=== PATIENT | male | born 1960 | race Hispanic/Latino ===

== ENCOUNTER 2017-03-16 10:01 | Day surgery (SDC) | payer OTHER ==
[2017-03-16 10:41] VITALS: RESP 18
[2017-03-16 10:43] VITALS: BMI 33.7
[2017-03-16] MEDS ORDERED: Midazolam 2 MG/2 ML VIAL ONE (11:26)
[2017-03-16] MEDS ORDERED: methylPREDNISolone Depo 80 mg/ml Inj ONE (11:26)
[2017-03-16] MEDS ORDERED: Iohexol 300 10 ML ONE (11:26)
[2017-03-16] MEDS ORDERED: MethylPREDNISolone Depo 40 mg/ml Inj ONE (11:26)
[2017-03-16] MEDS ORDERED: Bupivacaine HCl 0.5% PF (10 ml) Inj ONE (11:26)
[2017-03-16] MEDS ORDERED: Lidocaine 1% Inj (20ml) ONE (11:27)
[2017-03-16] MEDS ORDERED: Lactated Ringer's 1,000 ML IV ONE (11:29)
[2017-03-16] MEDS ORDERED: Lactated Ringer's 1,000 ML IV SCH (11:56)
[2017-03-16] MEDS ORDERED: HYDROmorphone 0.5 mg/0.5 ml ISec IVP PRN (11:56)
[2017-03-16 12:41] VITALS: BP 130/84; PULSE 78; TEMP 97.6; O2SAT 98
--- NOTE | 2017-03-16 17:22 | RAD ---
PROCEDURE: Less than 1 hr fluoroscopic time utilized during performance of the procedure. HISTORY: PAIN MANAGEMENT COMPARISON: None TECHNIQUE: Standard protocol for this study/examination. FINDINGS: Submitted images from the current procedure: 2.0. IMPRESSION: Total fluoroscopic time (continuous mode) utilized during the procedure: 34.0 seconds.
--- NOTE | 2017-03-16 23:53 | OP ---
PROCEDURE DATE: 03/16/2017 PREOPERATIVE DIAGNOSES: Left shoulder and left knee osteoarthritis. POSTOPERATIVE DIAGNOSES: Left shoulder and left knee osteoarthritis. PROCEDURE: Intra-articular steroid injection into the left shoulder and also genicular nerve block to the left knee x3. ANESTHESIOLOGISTS: Dr. Roberson and Dr. Loyd. SURGEON: Dr. Wright. TYPE OF ANESTHESIA: Monitored anesthesia care. COMPLICATIONS: None. SPECIMEN: None. DESCRIPTION OF PROCEDURE: After re-discussion of the procedure with the patient including its risks, benefits, alternatives, outcome data, possibility of no effects, increased pain, the patient consented to the procedure. The patient denies any recent infection, bleeding tendencies or being on anticoagulants. The decision was then made to proceed to the OR. The patient was placed on a fluoroscopy table in a supine position with 2 pillows underneath his left knee. The left shoulder and left knee was then prepped and draped in a usual sterile fashion and sterile technique was adhered to during the entire procedure. The left shoulder injection was first performed. Under anterior-posterior view, the left shoulder joint was visualized. The skin, approximately 5 mm below the left acromion was then infiltrated with 1% lidocaine using 25-gauge needled. Subsequently, a 25-gauge 3.5 inch spinal needle was then inserted perpendicularly to the skin until the needle was placed into the left shoulder joint. This was confirmed by injecting approximately 1 mL of Isovue contrast. At this point, approximately 4 mL of 0.5% Marcaine and Depo Medrol mixture was injected. The needled was then removed. Then the left knee injection was performed. The genicular nerves are located at the lateral and medial epicondyle of the femur and also the medial epicondyle of the tibia. The skin overlying the three of the targeted areas was then infiltrated with 1% lidocaine using 25-gauge needle. Subsequently, a 25-gauge 3.5 inch spinal needle was then inserted perpendicularly into the skin until tip of needle made point contact with all three targeted areas. Under lateral fluoroscopy view, the needle was advanced to the midpoint of the bone shaft. After appropriate placement of all three needles, approximately 4 mL of 0.5% Marcaine and Depo Medrol mixture was injected into each needle. At the end of the case, the patient's knee and shoulder was clean and dry, and bandages were applied. The patient was then transferred to recovery area in good condition without any signs of ELECTRICAL ENGINEERING MANAGER toxicity or any neurological deficit. He will have a followup in our office in approximately 2 to 4 weeks. En-Amrik Wright MD
== END 2017-03-16 13:00 | disposition home or self-care (01) ==
LOC: H.OPSURG 10:01
PROVIDERS: ATTEND Anesthesiology
DX: M17.12 Unilateral primary osteoarthritis, left knee (principal); J44.9 Chronic obstructive pulmonary disease, unspecified; I10 Essential (primary) hypertension; M19.012 Primary osteoarthritis, left shoulder
CPT/HCPCS: 20610; J1030; J1040; J2250; J3010; J7120; Q9967

== ENCOUNTER 2017-06-01 11:49 | Day surgery (SDC) | payer OTHER ==
[2017-06-01 12:30] VITALS: RESP 18
[2017-06-01] MEDS ORDERED: MethylPREDNISolone Depo 40 mg/ml Inj ONE (14:16)
[2017-06-01] MEDS ORDERED: Iohexol 300 10 ML ONE (14:17)
[2017-06-01] MEDS ORDERED: Bupivacaine HCl 0.25% PF (10 ml) Inj ONE (14:17)
[2017-06-01] MEDS ORDERED: Lidocaine 1% Inj (20ml) ONE (14:17)
[2017-06-01] MEDS ORDERED: methylPREDNISolone Depo 80 mg/ml Inj ONE (14:22)
[2017-06-01] MEDS ORDERED: Lactated Ringer's 1,000 ML IV ONE (14:23)
[2017-06-01 15:27] VITALS: BP 134/83; PULSE 72; TEMP 98.2
[2017-06-01 15:28] VITALS: O2SAT 98
--- NOTE | 2017-06-01 18:02 | OP ---
PROCEDURE DATE: 06/01/2017 PREOPERATIVE DIAGNOSIS: Lumbar radiculopathy. POSTOPERATIVE DIAGNOSIS: Lumbar radiculopathy. PROCEDURE: Bilateral L4-L5 and L5-S1 transforaminal epidural steroid injection. ANESTHESIA ADMINISTERED BY: Dr. Wyatt. SURGEON: Richard Wright MD TYPE OF ANESTHESIA: Monitored anesthesia care. COMPLICATIONS: None. SPECIMEN: None. DESCRIPTION OF PROCEDURE: After we had discussion of the procedure with the patient including its risks, benefits, alternatives, outcome data, possibility of no effect or increased pain, the patient consented to the procedure. He denies any recent infections, bleeding tendencies, or being on anticoagulants, and decision was then made to proceed to the OR. The patient was placed on a fluoroscopy table in a prone position with 2 pillows underneath his abdomen. The back was prepped and draped in the usual sterile fashion and sterile technique was adhered to during the entire procedure. The L4 and L5 vertebral levels were first identified in the anterior and posterior view. Angulation towards the right at approximately 25 degrees was used to maximize the visualization of the right L4 and L5 pedicles. The skin overlying the 6 o'clock position of both pedicles was then infiltrated with 1% lidocaine using a 25-gauge needle. Subsequently, a 22-gauge 5-inch spinal needle was incrementally advanced under fluoroscopic guidance until tip of the needle lay within the intravertebral foramen. After a satisfactory positioning of both needles, approximately 0.5 mL of Isovue contrast was injected showing appropriate epidural and nerve root spread without any signs of CSF or intravenous involvement. At this point, approximately 3 mL of 0.25% Marcaine and Depo-Medrol mixture was injected. The needle was then removed and the same exact procedure was performed on the contralateral left side using the same medications and techniques. At the end of the case, the patient's back was clean and dry and bandages were applied. The patient was then transferred to the recovery area in good conditions without any signs of INFRASTRUCTURE ANALYST toxicity or any neurological deficits. He will have a followup in our office in approximately 2 to 4 weeks. Richard Wright MD
--- NOTE | 2017-06-03 14:10 | RAD ---
PROCEDURE: Lumbar epidural injection HISTORY: PAIN MANAGEMENT COMPARISON: None TECHNIQUE: Standard protocol for this study/examination. FINDINGS: Total fluoroscopic time (continuous mode) utilized during the procedure: 36.3 seconds. Submitted images from the current procedure: 2.0. Total exam DLP: (mGy): 17.21 IMPRESSION: Less than 1 hr fluoroscopic time utilized during performance of the procedure.
== END 2017-06-01 15:50 | disposition home or self-care (01) ==
LOC: H.OPSURG 11:49
PROVIDERS: ATTEND Anesthesiology
DX: M54.16 Radiculopathy, lumbar region (principal); J44.9 Chronic obstructive pulmonary disease, unspecified; E78.5 Hyperlipidemia, unspecified; I10 Essential (primary) hypertension
CPT/HCPCS: 64483; 64484; J1040; J3010; J7120; Q9967

== ENCOUNTER 2018-02-15 09:16 | Day surgery (SDC) | payer OTHER ==
[2018-02-15] MEDS ORDERED: Lactated Ringer's 1,000 ML IV ONE (10:20)
[2018-02-15 10:31] VITALS: BMI 32.3
[2018-02-15] MEDS ORDERED: Iohexol 300 10 ML ONE (10:45)
[2018-02-15] MEDS ORDERED: MethylPREDNISolone Depo 40 mg/ml Inj ONE (10:45)
[2018-02-15] MEDS ORDERED: Bupivacaine HCl 0.25% PF (30 ml) Inj ONE (10:46)
[2018-02-15] MEDS ORDERED: Lidocaine 2% MPF (5 ml) Inj ONE (10:47)
[2018-02-15] MEDS ORDERED: Midazolam 2 MG/2 ML VIAL ONE (11:07)
[2018-02-15] MEDS ORDERED: methylPREDNISolone Depo 80 mg/ml Inj IM ONE (11:11)
[2018-02-15] MEDS ORDERED: Iohexol 300 10 ML IJ ONE (11:11)
[2018-02-15] MEDS ORDERED: Bupivacaine 0.25% Inj(30mL) IJ ONE (11:11)
[2018-02-15] MEDS ORDERED: Lidocaine 2% MPF (5 ml) Inj INJ ONE (11:11)
[2018-02-15] MEDS ORDERED: Lactated Ringer's 1,000 ML IV SCH (12:00)
[2018-02-15 12:32] VITALS: BP 124/78; PULSE 97; RESP 18; TEMP 97.8; O2SAT 97
--- NOTE | 2018-02-15 12:59 | RAD ---
Date of service: 02/15/2018 PROCEDURE: Fluoroscopy up to 1 hr. HISTORY: EPIDURAL COMPARISON: None TECHNIQUE: Standard protocol for this study/examination. FINDINGS: Total fluoroscopic time (continuous mode) utilized during the procedure (seconds) 37.4. IMPRESSION: Total exam DLP: 16.06 (mGy)
--- NOTE | 2018-02-15 23:07 | OP ---
PROCEDURE DATE: 02/15/2018 PREOPERATIVE DIAGNOSIS: Lumbar radiculopathy. POSTOPERATIVE DIAGNOSIS: Lumbar radiculopathy. PROCEDURE: Left L4-L5, L5-S1 transforaminal epidural steroid injections. ANESTHESIOLOGIST: Mc Garrett MD SURGEON: Richard Wright MD TYPE OF ANESTHESIA: Monitored anesthesia care. COMPLICATIONS: None. SPECIMEN: None. DESCRIPTION OF PROCEDURE: As follows: After we had discussion of the procedure with the patient including its risks, benefits, alternatives, outcome data and possibility of no effect or increased pain, the patient consented to the procedure. He denies any recent infection, bleeding tendencies or being on anticoagulants. Decision was then made to proceed to the OR. The patient was placed on the fluoroscopy table in a prone position with two pillows underneath his abdomen. The back was prepped and draped in the usual sterile fashion, and a sterile technique was adhered to during the entire procedure. The L5 and L4 vertebral levels were first identified in the anteroposterior view. Angulation towards the left at approximately 20 degrees was used to maximize the visualization of the left L4 and L5 pedicles. The skin overlying the 6 o'clock position of both pedicles was then infiltrated with 1% lidocaine using a 25-gauge needle. Subsequently, a 22-gauge 5-inch spinal needle was incrementally advanced under fluoroscopic guidance until the tip of needle walked into the intervertebral foramen. After satisfactory positioning of both needles, approximately 0.5 mL of Isovue contrast was injected showing appropriate epidural nerve root spread without any signs of CSF or intravenous involvement. At this point, approximately 3 mL of 0.25% Marcaine and Depo-Medrol mixture was injected. The needle was removed. The patient's back was cleaned, and dry bandages were applied. The patient was then transferred to the recovery area in good condition without any signs of PRIMING MACHINE OPERATOR toxicity or any neurological deficit. He will be following up in the office in approximately two to four weeks. Richard Wright MD
== END 2018-02-15 12:45 | disposition home or self-care (01) ==
LOC: H.OPSURG 09:16
PROVIDERS: ATTEND Anesthesiology
DX: M54.16 Radiculopathy, lumbar region (principal); J44.9 Chronic obstructive pulmonary disease, unspecified; N40.0 Benign prostatic hyperplasia without lower urinary tract symptoms
CPT/HCPCS: 64483; 64484; J1030; J1040; J2250; J3010; J7120; Q9967

== ENCOUNTER → 2018-03-22 | Day surgery (SDC) | payer OTHER ==
[~2018-03-22] MED LIST: Bupivacaine HCl 0.5% PF (30 ml) Inj IJ ONE; Bupivacaine HCl 0.5% PF (30 ml) Inj ONE; Lactated Ringer's 1,000 ML IV ONE; Lactated Ringer's 1,000 ML IV SCH; Lidocaine 2% MPF (5 ml) Inj INJ ONE; Lidocaine 2% MPF (5 ml) Inj ONE; Midazolam 2 MG/2 ML VIAL ONE; methylPREDNISolone Depo 80 mg/ml Inj IM ONE; methylPREDNISolone Depo 80 mg/ml Inj ONE
[2018-03-22 10:50] VITALS: O2SAT 98
[2018-03-22 10:52] VITALS: BP 112/72; PULSE 61; RESP 18; TEMP 97.9
--- NOTE | 2018-03-22 19:14 | OP ---
Copied To: Richard Wright MD Attending MD: Richard Wright MD PROCEDURE DATE: 03/22/2018 PREOPERATIVE DIAGNOSIS: Left knee osteoarthritis. POSTOPERATIVE DIAGNOSIS: Left knee osteoarthritis. PROCEDURE: Left knee genicular nerve block x3. SURGEON: Richard Wright MD ANESTHESIOLOGIST: Silvano Perry DO TYPE OF ANESTHESIA: Monitored anesthesia care. COMPLICATIONS: None. SPECIMEN: None. DESCRIPTION OF PROCEDURE: As follows: After we had discussion of the procedure with the patient including its risks, benefits, alternatives, outcome data, and possibility of no effect or increased pain, patient consented to the procedure. He denies any recent infection, bleeding tendencies, or being on anticoagulants. Decision was then made to proceed to the OR. Patient was placed on the fluoroscopy table in a supine position with two pillows underneath the left knee. The left knee was then prepped and draped in a usual sterile fashion and sterile technique was adhered to during the entire procedure. The knee was first visualized in the anteroposterior view. The targets of the superomedial and superolateral and inferomedial genicular nerves were located at the periosteal region between the femoral shaft and the medial and lateral epicondyles and also the periosteal region between the tibial shaft and the medial epicondyle respectively. The skin overlying these three areas was then anesthetized with 1% lidocaine using 25-gauge needle. Subsequently, a 22-gauge 3-1/2-inch spinal needle was then inserted perpendicular to the skin until bony contact with all three target areas were made. The needle was then walked off the bone and a lateral fluoroscopic view was used to guide the needle insertion until the tip of the needle was at the midshaft in all three regions. After appropriate placement of all three needles, approximately 4 mL of 0.5% Marcaine and Depo-Medrol mixture was injected. The needle was then removed. Patient's knee was then cleaned and dry bandages were applied. Patient was then transferred to the recovery area in good condition without any signs of CONTINUOUS PILLOWCASE CUTTER toxicity or any neurological deficit. He will be following in the office in approximately two to four weeks. Richard Wright MD
--- NOTE | 2018-03-24 17:01 | RAD ---
Date of service: 03/22/2018 PROCEDURE: Intraoperative fluoroscopy HISTORY: PAIN MANAGEMENT COMPARISON: Not available TECHNIQUE: Intraoperative fluoroscopy was provided for an interventional pain management procedure. Total time of fluoroscopy was 17.0 seconds. Cumulative dose was 0.86 mGy. FINDINGS: A single fluoroscopic spot film is submitted. IMPRESSION: Fluoroscopy provided
== END | disposition home or self-care (01) ==
LOC: H.OPSURG 08:32
PROVIDERS: ATTEND Anesthesiology
DX: M17.12 Unilateral primary osteoarthritis, left knee (principal); J45.909 Unspecified asthma, uncomplicated; J44.9 Chronic obstructive pulmonary disease, unspecified; I10 Essential (primary) hypertension; E03.9 Hypothyroidism, unspecified; K21.9 Gastro-esophageal reflux disease without esophagitis; M10.9 Gout, unspecified

== ENCOUNTER 2018-06-14 07:34 | Day surgery (SDC) | payer OTHER ==
[2018-06-14 08:06] VITALS: RESP 18
[2018-06-14] MEDS ORDERED: Midazolam 2 MG/2 ML VIAL ONE (11:25)
[2018-06-14] MEDS ORDERED: Lactated Ringer's 1,000 ML IV ONE (11:40)
[2018-06-14] MEDS ORDERED: MethylPREDNISolone 40 mg Vial IVP ONE (11:55)
[2018-06-14] MEDS ORDERED: Bupivacaine HCl 0.5% PF (30 ml) Inj IJ ONE (11:55)
[2018-06-14] MEDS ORDERED: Lidocaine 1% Inj (20ml) IJ ONE (11:55)
[2018-06-14] MEDS ORDERED: Lactated Ringer's 1,000 ML IV SCH (12:30)
[2018-06-14 13:26] VITALS: BP 148/85; PULSE 64; TEMP 97.4; O2SAT 100
--- NOTE | 2018-06-15 06:41 | OP ---
PROCEDURE DATE: 06/14/2018 PREOPERATIVE DIAGNOSIS: Lumbar spondylosis. POSTOPERATIVE DIAGNOSIS: Lumbar spondylosis. PROCEDURE: Left L3, L4 and L5 medial branch nerve radiofrequency. ANESTHESIOLOGIST: Shivani Loyd MD SURGEON: Richard Wright MD TYPE OF ANESTHESIA: Monitored anesthesia care. COMPLICATIONS: None. SPECIMEN: None. DESCRIPTION OF PROCEDURE: Procedure is as follows. After we had a discussion of the procedure with the patient including its risks, benefits, alternatives, outcome data, possibility of no effect or increased pain, the patient consented to the procedure. He denied any recent infection, bleeding tendencies, or being on anticoagulants. A decision was then made to proceed to the OR. The patient was placed on the fluoroscopy table in a prone position with two pillows underneath his abdomen. The back was prepped and draped in the usual sterile fashion. A sterile technique was adhered to during the entire procedure. The L3, L4 and L5 medial branch nerves on the left side were visualized by turning the fluoroscopy towards the left side at approximately 15 degrees. The targets are at the intersection of the superior articular process and the transverse process of the L4 and L5 pedicle along with the sacral ala. The skin overlying the three above targeted areas were then infiltrated with 1% lidocaine using a 25-gauge needle. Subsequently, a 22-gauge 3.5-inch needle was incrementally advanced under fluoroscopic guidance until tip of the needle made bony contact with all the three targeted areas. After satisfactory positioning of all three needles, sensory motor testing was carried out to satisfactory results.. Then, each nerve was anesthetized with 1% lidocaine. Radiofrequency was then carried out at 80 degrees Celsius for approximately 1.5 minutes. At the end of the procedure, each nerve was treated with a combination of 0.5% Marcaine and Depo-Medrol. At the end of the case, the patient's back was cleaned, and dry bandages were applied. The patient was then transferred to recovery area in good condition without any signs of DENTAL CHAIR ASSEMBLER toxicity or any neurological deficit. He will be following in the office in approximately two to four weeks. Richard Wright MD
--- NOTE | 2018-06-15 16:05 | RAD ---
Date of service: 06/14/2018 PROCEDURE: Fluoroscopy up to 1 hr. HISTORY: PAIN MANAGEMENT COMPARISON: None TECHNIQUE: Standard protocol for this study/examination. FINDINGS: Total fluoroscopic time (continuous mode) utilized during the procedure 41.2 seconds. Total exam DLP: 14.85 (mGy). IMPRESSION: Less than 1 hr fluoroscopic assistance provided during performance of the procedure.
== END 2018-06-14 13:40 | disposition home or self-care (01) ==
LOC: H.OPSURG 07:34
PROVIDERS: ATTEND Anesthesiology
DX: M54.16 Radiculopathy, lumbar region (principal); J45.909 Unspecified asthma, uncomplicated; I10 Essential (primary) hypertension; E03.9 Hypothyroidism, unspecified; M47.816 Spondylosis without myelopathy or radiculopathy, lumbar region
CPT/HCPCS: 64635; J1030; J2250; J2920; J3010; J7120

== ENCOUNTER 2018-08-08 15:46 | Inpatient (IN) | payer OTHER ==
[2018-08-08 15:57] VITALS: BMI 31.4
[2018-08-08] MEDS ORDERED: Albuterol-Ipratrop 3 mg / 0.5 (3 ml) UD INH STA (16:23)
[2018-08-08] MEDS ORDERED: levoFLOXacin 500 mg in D5W 500 MG/100 ML BAG IVPB STA (16:23)
--- NOTE | 2018-08-08 16:31 | ED PDOC ---
HPI: SOB/CHF/COPD Time Seen by Provider: 08/08/18 16:02 Chief Complaint (Nursing): Respiratory Distress History Per: Patient History/Exam Limitations: no limitations Onset/Duration Of Symptoms: Days (2 weeks) Current Symptoms Are (Timing): Still Present Exacerbating Factor(s): Coughing Additional Complaint(s): 57 year old male with PMHx of chronic back pain, COPD, HTN and arthritis presents to the ED for an evaluation of difficulty breathing and cough onset for 2 weeks. He states he was started on steroids and treatment by Dr. Hastings and felt better. However, the symptoms worsened since the last 2 days. He complaints of more difficulty breathing, tiredness, dry cough, shortness of breath and chest pain when coughing. Patient also reports he had to sleep on the recliner chair due to his breathing issues and he does not have an oxygen can at home. Otherwise, he denies leg swelling, fever, abdominal pain, nausea, vomiting or diarrhea. PMD: Dr. Darling Dupree (pain management) Past Medical History Reviewed: Historical Data, Nursing Documentation, Vital Signs Vital Signs: Last Vital Signs Temp 98.3 F 08/08/18 15:57 Pulse 104 H 08/08/18 15:57 Resp 22 08/08/18 15:57 BP 165/93 H 08/08/18 15:57 Pulse Ox 96 08/08/18 15:57 - Medical History PMH: Anxiety, Arthritis, Asthma, Back Problems, Bronchitis, COPD, Diverticulitis, HTN, Kidney Stones, Chronic Pain (chronic neck, back and left leg pain) Denies: Anemia, CHF, Hypercholesterolemia, Hypothyroidism, Chronic Kidney Disease, Rheumatoid Arthritis - Surgical History Surgical History: Hernia Repair (left inguinal repair x 2) Other surgeries: left knee surgery - Family History Family History: States: Unknown Family Hx - Social History Current smoker - smoking cessation education provided: No Alcohol: None Drugs: Denies - Immunization History Hx Tetanus Toxoid Vaccination: No Hx Influenza Vaccination: No Hx Pneumococcal Vaccination: No - Home Medications Home Medications: Ambulatory Orders Medication Instructions Recorded RX: Albuterol HFA [Ventolin HFA 90 2 puff IH Q6 PRN 09/10/15 mcg/actuation (8 g)] RX: oxyCODONE [oxyCODONE Immediate 15 mg PO Q6H PRN 09/10/15 Release Tab] RX: Indomethacin [Indocin] 50 mg PO Q8 PRN 01/14/16 RX: Cyclobenzaprine [Flexeril] 10 mg PO TID PRN 03/31/16 RX: Enalapril Maleate [Vasotec] 10 mg PO BID 03/31/16 RX: amLODIPine [Norvasc] 10 mg PO DAILY 03/31/16 RX: Pantoprazole Sodium [Protonix] 40 mg PO DAILY PRN 06/18/16 tiZANidine [Zanaflex] 4 mg PO TID PRN 06/14/18 Promethazine HCl/Codeine 10 ml PO Q6 PRN 08/08/18 [Prometh-Codein 6.25-10 mg/5 ml] - Allergies Allergies/Adverse Reactions: Allergies Allergy/AdvReac Type Severity Reaction Status Date / Time Penicillins Allergy RASH Verified 08/08/18 15:57 Review of Systems ROS Statement: Except As Marked, All Systems Reviewed And Found Negative Constitutional: Positive for: Other (tiredness). Negative for: Fever Cardiovascular: Positive for: Chest Pain Respiratory: Positive for: Cough, Shortness of Breath Gastrointestinal: Negative for: Nausea, Vomiting, Abdominal Pain, Diarrhea Musculoskeletal: Negative for: Leg Pain, Other (leg swelling) Skin: Negative for: Rash Physical Exam - Reviewed Nursing Documentation Reviewed: Yes Vital Signs Reviewed: Yes - Physical Exam Appears: Positive for: Non-toxic, No Acute Distress. Negative for: Well (obese) Head Exam: Positive for: ATRAUMATIC, NORMAL INSPECTION, NORMOCEPHALIC Skin: Positive for: Normal Color, Warm, Dry. Negative for: Rash Eye Exam: Positive for: EOMI, Normal appearance, PERRL ENT: Positive for: Normal ENT Inspection Neck: Positive for: Normal, Painless ROM, Supple. Negative for: Decreased ROM Cardiovascular/Chest: Positive for: Regular Rate, Rhythm. Negative for: Murmur Respiratory: Positive for: Wheezing (expiratory bilateral). Negative for: Respiratory Distress Gastrointestinal/Abdominal: Positive for: Normal Exam, Soft. Negative for: Tenderness Back: Positive for: Normal Inspection. Negative for: L CVA Tenderness, R CVA Tenderness Extremity: Positive for: Normal ROM. Negative for: Tenderness, Pedal Edema, Deformity Neurologic/Psych: Positive for: Alert, Oriented (x3). Negative for: Motor/Sensory Deficits - Laboratory Results Result Diagrams: 08/09/18 05:55 08/09/18 05:55 - ECG O2 Sat by Pulse Oximetry: 96 (RA) Pulse Ox Interpretation: Normal Medical Decision Making Medical Decision Making: Time: 1600 Initial impression: shortness of breath upon coughing Differential Diagnosis: COPD exacerbation, pneumonia r/o CHF Initial Plan: EKG Reevaluation Scribe Attestation: Documented by Thomas Knight, acting as a scribe for Tegan William MD. Provider Scribe Attestation: All medical record entries made by the Scribe were at my direction and personally dictated by me. I have reviewed the chart and agree that the record accurately reflects my personal performance of the history, physical exam, medical decision making, and the department course for this patient. I have also personally directed, reviewed, and agree with the discharge instructions and disposition. Time: 1623 Plan: -- B-Type Natriuretic Peptide -- BMP -- CBC with Differentials -- CXR -- Duoneb 3 mg/0.5 mg 3 ml INH -- Levaqui 500 mg IN 100 ml IVPB -- SOLU-Medrol 125 mg IVP -- Blood Culture -- Peak Flow Pre/Post Tx -- Influenza A B Time: 1700 CXR RESULTS FINDINGS: LUNGS: No active pulmonary disease. PLEURA: No significant pleural effusion identified. No pneumothorax apparent. CARDIOVASCULAR: No aortic atherosclerotic calcification present. Normal cardiac size. No pulmonary vascular congestion. OSSEOUS STRUCTURES: No significant abnormalities. VISUALIZED UPPER ABDOMEN: Mammilated right hemidiaphragm reiterated. OTHER FINDINGS: None. IMPRESSION: No interval acute cardiopulmonary disease appreciated. __ Scribe Attestation: Documented by Prachi Carr, acting as a scribe for Tegan William MD. Provider Scribe Attestation: All medical record entries made by the Scribe were at my direction and personally dictated by me. I have reviewed the chart and agree that the record accurately reflects my personal performance of the history, physical exam, medical decision making, and the department course for this patient. I have also personally directed, reviewed, and agree with the discharge instructions and disposition. Disposition - Clinical Impression Clinical Impression: COPD exacerbation - Patient ED Disposition Is Patient to be Admitted: Yes Discussed With : Gianni Hastings Doctor Will See Patient In The: Hospital - Disposition Disposition: Routine/Home Disposition Time: 17:00 Condition: FAIR - Pt Status Changed To: Hospital Disposition Of: Inpatient - Admit Certification Admit to Inpatient:: After my assessment, the patient will require hospi talization for at least two midnights. This is because of the severity of symptoms shown, intensity of services needed, and/or the medical risk in this patient being treated as an outpatient. - POA Present On Arrival: None
[2018-08-08] MEDS ORDERED: Albuterol-Ipratrop 3 mg / 0.5 (3 ml) UD ONE (16:39)
[2018-08-08] MEDS ORDERED: levoFLOXacin 500 mg in D5W 500 MG/100 ML BAG IVPB ONE (16:40)
[2018-08-08 16:44] LABS: ABG ALLEN TEST YES; ARTERIAL BLOOD GAS HCO3 28.1 mmol/L (21-28); ARTERIAL BLOOD GAS HEMOGLOBIN 14.1 g/dL (11.7-17.4); ARTERIAL BLOOD GAS O2 CAPACITY 18.9 mL/dL (16-24); ARTERIAL BLOOD GAS O2 CONTENT 18.7 ML/dL (15-23); ARTERIAL BLOOD GAS O2 SAT 98.8 % (95-98); ARTERIAL BLOOD GAS PCO2 47 mm/Hg (35-45); ARTERIAL BLOOD GAS PH 7.41 (7.35-7.45); ARTERIAL BLOOD GAS PO2 80 mm/Hg (80-100); ARTERIAL BLOOD GAS TCO2 31.2 mmol/L (22-28)
--- NOTE | 2018-08-08 17:04 | RAD ---
Date of service: 08/08/2018 HISTORY: sob cough COMPARISON: Chest radiographs 10/04/2016. TECHNIQUE: Chest PA and lateral FINDINGS: LUNGS: No active pulmonary disease. PLEURA: No significant pleural effusion identified. No pneumothorax apparent. CARDIOVASCULAR: No aortic atherosclerotic calcification present. Normal cardiac size. No pulmonary vascular congestion. OSSEOUS STRUCTURES: No significant abnormalities. VISUALIZED UPPER ABDOMEN: Mammilated right hemidiaphragm reiterated. OTHER FINDINGS: None. IMPRESSION: No interval acute cardiopulmonary disease appreciated.
[2018-08-08 17:11] LABS: BASO % 0.8 % (0.0-2.0); EOS # 0.1 K/uL (0.0-0.7); EOS % 2.4 % (0.0-4.0); HEMOGLOBIN 13.8 g/dL (12.0-18.0); LYMPH # 1.4 K/uL (1.0-4.3); LYMPH % 30.1 % (20.0-40.0); MEAN CELL VOLUME 93.1 fl (80.0-94.0); MEAN CORPUSCULAR HGB CONC 33.3 g/dL (33.0-37.0); MEAN PLATELET VOLUME 9.4 fl (7.2-11.7); MONO # 0.7 K/uL (0.0-0.8); NEUT # 2.5 K/uL (1.8-7.0); NEUT % 52.7 % (50.0-75.0); NRBC % 0.1 % (0.0-0.0); RBC 4.44 Mil/uL (4.40-5.90); RED CELL DISTRIBUTION WIDTH 14.5 % (11.5-14.5); WHITE BLOOD COUNT 4.7 K/uL (4.8-10.8)
[2018-08-08 18:14] LABS: ALB/GLOB RATIO 1.3 (1.0-2.1); ALBUMIN 4.1 g/dL (3.5-5.0); ALT/SGPT 32 U/L (21-72); AST/SGOT 34 U/L (17-59); BLOOD UREA NITROGEN 16 mg/dl (9-20); CALCIUM 8.8 mg/dL (8.4-10.2); GFR NON-AFRICAN AMERICAN > 60
[2018-08-08] MEDS ORDERED: Pantoprazole 40 mg EC Tab PO PRN (21:32)
[2018-08-08] MEDS ORDERED: Sodium Chloride 3% for Inhalation 4 ML VIAL.NEB IH PRN (21:34)
[2018-08-08] MEDS: oxyCODONE 5 mg Immediate Release Tab PO PRN (22:33)
[2018-08-08] MEDS: Dextrose 5%/0.45% NS 1,000 ML IV SCH (22:35)
[2018-08-08] MEDS: Promethazine/Cod 6.25mg-10mg/5ml Syr UD PO PRN (22:54)
[2018-08-09] MEDS ORDERED: methylPREDNISolone 80 MG in Sodium Chloride 0.9% 50 ML IV SCH (01:00)
[2018-08-09] MEDS ORDERED: methylPREDNISolone 80 MG in Sodium Chloride 0.9% 50 ML IVPB SCH (01:00)
[2018-08-09] MEDS: Albuterol-Ipratrop 3 mg / 0.5 (3 ml) UD INH SCH ×4 (02:42→19:57)
[2018-08-09 06:31] LABS: HEMOGLOBIN 13.6 g/dL (12.0-18.0); MEAN CELL VOLUME 93.8 fl (80.0-94.0); MEAN CORPUSCULAR HEMOGLOBIN 30.8 pg (27.0-31.0); MEAN CORPUSCULAR HGB CONC 32.9 g/dL (33.0-37.0); RBC 4.41 Mil/uL (4.40-5.90); RED CELL DISTRIBUTION WIDTH 14.4 % (11.5-14.5); WHITE BLOOD COUNT 4.1 K/uL (4.8-10.8)
--- NOTE | 2018-08-09 06:48 | CARD ---
APPROVED REPORT Date of service: 08/08/2018 EKG Measurement Heart [id number] <Conclusion> Sinus tachycardia Left anterior fascicular block Minimal voltage criteria for LVH, may be normal variant Abnormal ECG
[2018-08-09 07:00] LABS: BLOOD UREA NITROGEN 16 mg/dl (9-20); CALCIUM 9.3 mg/dL (8.4-10.2); GFR NON-AFRICAN AMERICAN > 60
[2018-08-09] MEDS: oxyCODONE 5 mg Immediate Release Tab PO PRN ×2 (09:25→17:22)
[2018-08-09] MEDS: Promethazine/Cod 6.25mg-10mg/5ml Syr UD PO PRN ×2 (09:25→17:22)
[2018-08-09] MEDS: Dextrose 5%/0.45% NS 1,000 ML IV SCH ×2 (09:37→20:53)
--- NOTE | 2018-08-09 13:11 | HP ---
HISTORY OF PRESENT ILLNESS: Mr. Crook is a 57-year-old male who was admitted via the emergency room because of shortness of breath, exercise intolerance, cough for the past 1 month prior to presentation, worse on admission. He has been treated as an outpatient in the office with antibiotics, prednisone as well as bronchodilators but symptoms worsened. PAST MEDICAL HISTORY: He has a past medical history of chronic obstructive pulmonary disease, hypertension, chronic back pain syndrome and arthritis. FAMILY HISTORY: The family history is remarkable for mother who of complications from colitis and father from cardiac disease. SOCIAL HISTORY: Socially, he does not smoke or drink. REVIEW OF SYSTEMS: Essentially remarkable for shortness of breath and back pain. PHYSICAL EXAMINATION: GENERAL: The patient is alert and oriented, appears to be in some distress because of shortness of breath. VITAL SIGNS: On admission, blood pressure 165/95, pulse of 98, respiratory rate 20. He is febrile. O2 sat 96% on nasal cannula oxygen. HEENT: Mouth shows poor hygiene with mucous engorgement of pharynx. SKIN: Shows fair turgor. NECK: JVP flat. LUNGS: Dullness bilaterally with rales and wheezing. HEART: Regular. ABDOMEN: Soft, nontender, no organomegaly. EXTREMITIES: Shows no edema or cyanosis, but there is arthritis changes of multiple joints. LABORATORY DATA: WBC 4.7, hemoglobin 13.8, platelet count of 218,000. Sodium 140, potassium 4.2, BUN 16, creatinine 0.8, serum glucose of 127. Arterial blood gas pH 7.4, pCO2 of 47, pO2 of 80, this is on room air. Chest x-ray remarkable for no active cardiopulmonary disease. EKG, sinus tachycardia, left anterior fascicular block, minimal LVH by voltage. IMPRESSION: Acute exacerbation of chronic obstructive pulmonary disease. Outpatient treatment failure, hypertension poorly controlled, history of chronic pain and arthritis. PLAN: The plan is intravenous steroids as well as bronchodilators, oxygen therapy, antitussives, IV antibiotics. Further therapy will depend on findings. Gianni Hastings MD
[2018-08-10] MEDS: Albuterol-Ipratrop 3 mg / 0.5 (3 ml) UD INH SCH ×4 (01:20→19:20)
[2018-08-10] MEDS: Promethazine/Cod 6.25mg-10mg/5ml Syr UD PO PRN ×2 (06:58→22:11)
[2018-08-10] MEDS: oxyCODONE 5 mg Immediate Release Tab PO PRN ×2 (09:39→18:35)
--- NOTE | 2018-08-10 09:58 | CP.PCM.PN ---
Subjective - Date & Time of Evaluation Date of Evaluation: 08/10/18 Time of Evaluation: 09:57 - Subjective Subjective: STILL DYSPNEIC AND COUGHING Objective - Vital Signs/Intake and Output Vital Signs (last 24 hours): Temp Pulse Resp BP Pulse Ox 97.5 F L 91 H 18 156/71 H 98 08/10/18 08:08 08/10/18 09:40 08/10/18 08:08 08/10/18 09:40 08/10/18 08:08 - Medications Medications: Current Medications Albuterol/Ipratropium (Duoneb 3 Mg/0.5 Mg (3 Ml) Ud) 3 ml INH RQ6 [facility] Last Admin: 08/10/18 07:36 Dose: 3 ml Amlodipine Besylate (Norvasc) 10 mg PO DAILY [facility] Last Admin: 08/10/18 09:40 Dose: 10 mg Cyclobenzaprine HCl (Flexeril) 10 mg PO TID PRN PRN Reason: muscle spasm/pain Enalapril Maleate (Vasotec) 10 mg PO BID [facility] Last Admin: 08/10/18 09:42 Dose: 10 mg Levofloxacin/Dextrose (Levaquin 500mg) 500 mg in 100 mls @ 100 mls/hr IVPB DAILY [facility]; Protocol Indomethacin (Indocin) 50 mg PO Q8 PRN PRN Reason: Pain, moderate (4-7) Methylprednisolone (Solu-Medrol) 80 mg IV Q8 [facility] Last Admin: 08/10/18 09:41 Dose: 80 mg Oxycodone HCl (Oxycodone Immediate Release Tab) 15 mg PO Q6H PRN PRN Reason: Pain, severe (8-10) Last Admin: 08/10/18 09:39 Dose: 15 mg Pantoprazole Sodium (Protonix Ec Tab) 40 mg PO DAILY PRN PRN Reason: Heartburn Promethazine HCl/Codeine (Phenergan/Codeine Oral Syrup) 10 ml PO Q6 PRN PRN Reason: Cough Last Admin: 08/10/18 06:58 Dose: 10 ml Tizanidine HCl (Zanaflex) 4 mg PO TID PRN PRN Reason: Muscle spasm Last Admin: 08/09/18 23:08 Dose: 4 mg - Labs Labs: 08/09/18 05:55 08/09/18 05:55 - Constitutional Appears: Chronically Ill - Head Exam Head Exam: ATRAUMATIC, NORMAL INSPECTION, NORMOCEPHALIC - Eye Exam Eye Exam: EOMI, Normal appearance, PERRL Pupil Exam: NORMAL ACCOMODATION, PERRL - ENT Exam ENT Exam: Mucous Membranes Moist, Normal Exam - Neck Exam Neck Exam: Full ROM, Normal Inspection. absent: Lymphadenopathy - Respiratory Exam Respiratory Exam: Decreased Breath Sounds, Prolonged Expiratory Phase, Rales, Wheezes, NORMAL BREATHING PATTERN - Cardiovascular Exam Cardiovascular Exam: REGULAR RHYTHM, +S1, +S2. absent: Murmur - GI/Abdominal Exam GI & Abdominal Exam: Soft, Normal Bowel Sounds. absent: Tenderness - Rectal Exam Rectal Exam: NORMAL INSPECTION - Extremities Exam Extremities Exam: Full ROM, Normal Capillary Refill, Normal Inspection. absent: Joint Swelling, Pedal Edema - Back Exam Back Exam: NORMAL INSPECTION - Neurological Exam Neurological Exam: Alert, Awake, CN II-XII Intact, Normal Gait, Oriented x3 - Psychiatric Exam Psychiatric exam: Normal Affect, Normal Mood - Skin Skin Exam: Dry, Intact, Normal Color, Warm Assessment and Plan - Assessment and Plan (Free Text) Assessment: COPD EXAC URI HTN Plan: CONTINUE CURRENT RX
[2018-08-10] MEDS: levoFLOXacin 500 mg in D5W 500 MG/100 ML BAG IVPB SCH (11:45)
[2018-08-10] MEDS: Acetylcysteine 20% Inhal Soln (4ml) INH SCH (19:20)
[2018-08-11] MEDS: Albuterol-Ipratrop 3 mg / 0.5 (3 ml) UD INH SCH ×4 (01:01→19:27)
[2018-08-11] MEDS: Acetylcysteine 20% Inhal Soln (4ml) INH SCH ×2 (07:28→19:27)
[2018-08-11 08:25] VITALS: RESP 20
[2018-08-11] MEDS: oxyCODONE 5 mg Immediate Release Tab PO PRN ×2 (09:36→16:50)
[2018-08-11] MEDS: Promethazine/Cod 6.25mg-10mg/5ml Syr UD PO PRN ×2 (09:37→21:27)
[2018-08-11] MEDS: levoFLOXacin 500 mg in D5W 500 MG/100 ML BAG IVPB SCH (09:46)
--- NOTE | 2018-08-11 10:49 | CP.PCM.PN ---
Subjective - Date & Time of Evaluation Date of Evaluation: 08/11/18 Time of Evaluation: 10:49 - Subjective Subjective: STILL COUGHING AND DYSPNEIC ON MILD EXERTION UNABLE TO EXPECTORATE SPUTUM Objective - Vital Signs/Intake and Output Vital Signs (last 24 hours): Temp Pulse Resp BP Pulse Ox 97.6 F 75 20 130/88 97 08/11/18 08:24 08/11/18 09:38 08/11/18 08:24 08/11/18 09:38 08/11/18 08:24 - Medications Medications: Current Medications Acetylcysteine (Acetylcysteine 20%) 2 ml INH RBID [facility] Last Admin: 08/11/18 07:28 Dose: Not Given Albuterol/Ipratropium (Duoneb 3 Mg/0.5 Mg (3 Ml) Ud) 3 ml INH RQ6 [facility] Last Admin: 08/11/18 07:28 Dose: Not Given Amlodipine Besylate (Norvasc) 10 mg PO DAILY [facility] Last Admin: 08/11/18 09:38 Dose: 10 mg Cyclobenzaprine HCl (Flexeril) 10 mg PO TID PRN PRN Reason: muscle spasm/pain Last Admin: 08/11/18 09:41 Dose: 10 mg Enalapril Maleate (Vasotec) 10 mg PO BID [facility] Last Admin: 08/11/18 09:38 Dose: 10 mg Levofloxacin/Dextrose (Levaquin 500mg) 500 mg in 100 mls @ 100 mls/hr IVPB DAILY [facility]; Protocol Last Admin: 08/11/18 09:46 Dose: 100 mls/hr Indomethacin (Indocin) 50 mg PO Q8 PRN PRN Reason: Pain, moderate (4-7) Methylprednisolone (Solu-Medrol) 80 mg IV Q8 [facility] Last Admin: 08/11/18 09:39 Dose: 80 mg Oxycodone HCl (Oxycodone Immediate Release Tab) 15 mg PO Q6H PRN PRN Reason: Pain, severe (8-10) Last Admin: 08/11/18 09:36 Dose: 15 mg Pantoprazole Sodium (Protonix Ec Tab) 40 mg PO DAILY PRN PRN Reason: Heartburn Promethazine HCl/Codeine (Phenergan/Codeine Oral Syrup) 10 ml PO Q6 PRN PRN Reason: Cough Last Admin: 08/11/18 09:37 Dose: 10 ml Tizanidine HCl (Zanaflex) 4 mg PO TID PRN PRN Reason: Muscle spasm Last Admin: 08/10/18 21:40 Dose: 4 mg - Labs Labs: 08/09/18 05:55 08/09/18 05:55 - Constitutional Appears: In Acute Distress - Head Exam Head Exam: ATRAUMATIC, NORMAL INSPECTION, NORMOCEPHALIC - Eye Exam Eye Exam: EOMI, Normal appearance, PERRL Pupil Exam: NORMAL ACCOMODATION, PERRL - ENT Exam ENT Exam: Mucous Membranes Moist, Normal Exam - Neck Exam Neck Exam: Full ROM, Normal Inspection. absent: Lymphadenopathy - Respiratory Exam Respiratory Exam: Decreased Breath Sounds, Prolonged Expiratory Phase, Rales, Wheezes, NORMAL BREATHING PATTERN - Cardiovascular Exam Cardiovascular Exam: REGULAR RHYTHM, +S1, +S2. absent: Murmur - GI/Abdominal Exam GI & Abdominal Exam: Soft, Normal Bowel Sounds. absent: Tenderness - Rectal Exam Rectal Exam: NORMAL INSPECTION - Extremities Exam Extremities Exam: Full ROM, Normal Capillary Refill, Normal Inspection. absent: Joint Swelling, Pedal Edema - Back Exam Back Exam: NORMAL INSPECTION - Neurological Exam Neurological Exam: Alert, Awake, CN II-XII Intact, Normal Gait, Oriented x3 - Psychiatric Exam Psychiatric exam: Normal Affect, Normal Mood - Skin Skin Exam: Dry, Intact, Normal Color, Warm Assessment and Plan - Assessment and Plan (Free Text) Assessment: ACUTE EXAC OF COPD ACUTE BRONCHITIS HTN Plan: CONTINUE CURRENT RX
[2018-08-12] MEDS: Albuterol-Ipratrop 3 mg / 0.5 (3 ml) UD INH SCH ×5 (01:05→19:03)
[2018-08-12] MEDS: Promethazine/Cod 6.25mg-10mg/5ml Syr UD PO PRN (07:42)
[2018-08-12] MEDS: Acetylcysteine 20% Inhal Soln (4ml) INH SCH ×2 (07:59→19:03)
[2018-08-12] MEDS: levoFLOXacin 500 mg in D5W 500 MG/100 ML BAG IVPB SCH (08:58)
[2018-08-12] MEDS: oxyCODONE 5 mg Immediate Release Tab PO PRN ×2 (09:01→16:36)
--- NOTE | 2018-08-12 10:27 | CP.PCM.PN ---
Subjective - Date & Time of Evaluation Date of Evaluation: 08/12/18 Time of Evaluation: 10:29 - Subjective Subjective: STILL C/O CHEST TIGHTNESS SOB IMPROVING MILD PLEURITIC CHEST DISCOMFORT ON COUGHING Objective - Vital Signs/Intake and Output Vital Signs (last 24 hours): Temp Pulse Resp BP Pulse Ox 97.8 F 75 20 164/90 H 95 08/12/18 07:57 08/12/18 08:58 08/12/18 07:57 08/12/18 08:58 08/12/18 07:57 - Medications Medications: Current Medications Acetylcysteine (Acetylcysteine 20%) 2 ml INH RBID [facility] Last Admin: 08/12/18 07:59 Dose: 2 ml Albuterol/Ipratropium (Duoneb 3 Mg/0.5 Mg (3 Ml) Ud) 3 ml INH RQ6 [facility] Last Admin: 08/12/18 07:59 Dose: 3 ml Amlodipine Besylate (Norvasc) 10 mg PO DAILY [facility] Last Admin: 08/12/18 08:58 Dose: 10 mg Cyclobenzaprine HCl (Flexeril) 10 mg PO TID PRN PRN Reason: muscle spasm/pain Last Admin: 08/11/18 09:41 Dose: 10 mg Enalapril Maleate (Vasotec) 10 mg PO BID [facility] Last Admin: 08/12/18 08:57 Dose: 10 mg Levofloxacin/Dextrose (Levaquin 500mg) 500 mg in 100 mls @ 100 mls/hr IVPB DAILY [facility]; Protocol Last Admin: 08/12/18 08:58 Dose: 100 mls/hr Indomethacin (Indocin) 50 mg PO Q8 PRN PRN Reason: Pain, moderate (4-7) Oxycodone HCl (Oxycodone Immediate Release Tab) 15 mg PO Q6H PRN PRN Reason: Pain, severe (8-10) Last Admin: 08/12/18 09:01 Dose: 15 mg Promethazine HCl/Codeine (Phenergan/Codeine Oral Syrup) 10 ml PO Q6 PRN PRN Reason: Cough Last Admin: 08/12/18 07:42 Dose: 10 ml Tizanidine HCl (Zanaflex) 4 mg PO TID PRN PRN Reason: Muscle spasm Last Admin: 08/11/18 21:26 Dose: 4 mg - Labs Labs: 08/09/18 05:55 08/09/18 05:55 - Constitutional Appears: No Acute Distress - Head Exam Head Exam: ATRAUMATIC, NORMAL INSPECTION, NORMOCEPHALIC - Eye Exam Eye Exam: EOMI, Normal appearance, PERRL Pupil Exam: NORMAL ACCOMODATION, PERRL - ENT Exam ENT Exam: Mucous Membranes Moist, Normal Exam - Neck Exam Neck Exam: Full ROM, Normal Inspection. absent: Lymphadenopathy - Respiratory Exam Respiratory Exam: Decreased Breath Sounds, Prolonged Expiratory Phase, Rales, Wheezes, NORMAL BREATHING PATTERN - Cardiovascular Exam Cardiovascular Exam: REGULAR RHYTHM, +S1, +S2. absent: Murmur - GI/Abdominal Exam GI & Abdominal Exam: Soft, Normal Bowel Sounds. absent: Tenderness - Rectal Exam Rectal Exam: NORMAL INSPECTION - Extremities Exam Extremities Exam: Full ROM, Normal Capillary Refill, Normal Inspection. absent: Joint Swelling, Pedal Edema - Back Exam Back Exam: NORMAL INSPECTION - Neurological Exam Neurological Exam: Alert, Awake, CN II-XII Intact, Normal Gait, Oriented x3 - Psychiatric Exam Psychiatric exam: Normal Affect, Normal Mood - Skin Skin Exam: Dry, Intact, Normal Color, Warm Assessment and Plan - Assessment and Plan (Free Text) Assessment: COPD EXAC ACUTE BRONCHITIS HTN Plan: SEE ORDERS TAPER STEROIDS CT SCAN OF CHEST TO EVALUATE FOR FURTHER PULMONARY PATHOLOGY
--- NOTE | 2018-08-12 13:49 | CT ---
Date of service: 08/12/2018 PROCEDURE: CT Chest without contrast HISTORY: CHEST PAIN/SOB COMPARISON: Chest CT without contrast 11/01/2014. TECHNIQUE: Contiguous axial images were obtained through the chest without intravenous contrast enhancement. Sagittal and coronal reconstructions were performed. Radiation dose: Total exam DLP = 661.94 mGy-cm. This CT exam was performed using one or more of the following dose reduction techniques: Automated exposure control, adjustment of the mA and/or kV according to patient size, and/or use of iterative reconstruction technique. FINDINGS: LUNGS: No infiltrates bilaterally. Central airways are clear. No definitive mass throughout. Linear atelectasis or fibrosis in the left lower lobe base posteriorly. MEDIASTINUM: Unremarkable thoracic aorta. No aneurysm. Normal sized heart. Main pulmonary artery unremarkable. No vascular congestion. No lymphadenopathy. No aortic atherosclerotic calcification. PLEURA: No pleural fluid. No pneumothorax. BONES: No fracture. No destructive lesion. UPPER ABDOMEN: A few punctate intrarenal calculi are suspected at the left kidney versus vascular calcifications. OTHER FINDINGS: None. IMPRESSION: Minimal linear atelectasis or fibrosis is seen at the left lower lobe base with the lung meyers otherwise clear bilaterally including central airways. No pleural or pericardial effusion. No pulmonary vascular congestion.
[2018-08-12 16:55] VITALS: TEMP 97.6
[2018-08-13] MEDS: Albuterol-Ipratrop 3 mg / 0.5 (3 ml) UD INH SCH ×2 (01:02→07:29)
[2018-08-13] MEDS: Acetylcysteine 20% Inhal Soln (4ml) INH SCH (07:28)
[2018-08-13] MEDS: levoFLOXacin 500 mg in D5W 500 MG/100 ML BAG IVPB SCH (08:07)
[2018-08-13 08:12] VITALS: BP 123/71; PULSE 78; O2SAT 98
[2018-08-13] MEDS ORDERED: Pantoprazole 40 mg EC Tab PO SCH (09:00)
--- NOTE | 2018-08-13 09:58 | CP.PCM.DIS ---
Provider - Provider Date of Admission: 08/08/18 17:52 Attending physician: Gianni Page MD Time Spent in preparation of Discharge (in minutes): 35 Diagnosis - Discharge Diagnosis (1) COPD exacerbation Status: Acute (2) Arthritis Status: Acute (3) Atelectasis Status: Acute (4) Bronchitis Status: Acute (5) COPD with acute bronchitis Status: Acute (6) Hypertension Status: Acute Hospital Course - Lab Results Lab Results: Micro Results 08/08/18 15:55 Blood Blood Culture - Preliminary NO GROWTH AFTER 4 DAYS 08/10/18 13:14 Sputum Gram Stain - Final 08/10/18 13:14 Sputum Sputum Culture - Final NORMAL ORAL CHIP Most Recent Lab Values WBC 4.1 K/uL (4.8-10.8) L 08/09/18 05:55 RBC 4.41 Mil/uL (4.40-5.90) 08/09/18 05:55 Hgb 13.6 g/dL (12.0-18.0) 08/09/18 05:55 Hct 41.4 % (35.0-51.0) 08/09/18 05:55 MCV 93.8 fl (80.0-94.0) 08/09/18 05:55 MCH 30.8 pg (27.0-31.0) 08/09/18 05:55 MCHC 32.9 g/dL (33.0-37.0) L 08/09/18 05:55 RDW 14.4 % (11.5-14.5) 08/09/18 05:55 Plt Count 201 K/uL (130-400) 08/09/18 05:55 MPV 9.4 fl (7.2-11.7) 08/08/18 17:01 Neut % (Auto) 52.7 % (50.0-75.0) 08/08/18 17:01 Lymph % (Auto) 30.1 % (20.0-40.0) 08/08/18 17:01 Foard % (Auto) 14.0 % (0.0-10.0) H 08/08/18 17:01 Eos % (Auto) 2.4 % (0.0-4.0) 08/08/18 17:01 Baso % (Auto) 0.8 % (0.0-2.0) 08/08/18 17:01 Neut # (Auto) 2.5 K/uL (1.8-7.0) 08/08/18 17:01 Lymph # (Auto) 1.4 K/uL (1.0-4.3) 08/08/18 17:01 Foard # (Auto) 0.7 K/uL (0.0-0.8) 08/08/18 17:01 Eos # (Auto) 0.1 K/uL (0.0-0.7) 08/08/18 17:01 Baso # (Auto) 0.0 K/uL (0.0-0.2) 08/08/18 17:01 pCO2 47 mm/Hg (35-45) H 08/08/18 16:36 pO2 80 mm/Hg (80-100) 08/08/18 16:36 HCO3 28.1 mmol/L (21-28) H 08/08/18 16:36 ABG pH 7.41 (7.35-7.45) 08/08/18 16:36 ABG Total CO2 31.2 mmol/L (22-28) H 08/08/18 16:36 ABG O2 Saturation 98.8 % (95-98) H 08/08/18 16:36 ABG O2 Content 18.7 ML/dL (15-23) 08/08/18 16:36 ABG Base Excess 4.2 mmol/L (-2.0-3.0) H 08/08/18 16:36 ABG Hemoglobin 14.1 g/dL (11.7-17.4) 08/08/18 16:36 ABG Carboxyhemoglobin 2.5 % (0.5-1.5) H 08/08/18 16:36 POC ABG HHb (Measured) 1.1 % (0.0-5.0) 08/08/18 16:36 ABG Methemoglobin 2.0 % (0.0-3.0) 08/08/18 16:36 ABG O2 Capacity 18.9 mL/dL (16-24) 08/08/18 16:36 Rodney Test Yes 08/08/18 16:36 A-a O2 Difference 11.0 mm/Hg 08/08/18 16:36 Hgb O2 Saturation 94.3 % (95.0-98.0) L 08/08/18 16:36 Vent Mode Room air 08/08/18 16:36 FiO2 21.0 % 08/08/18 16:36 Sodium 141 mmol/l (132-148) 08/09/18 05:55 Potassium 4.7 MMOL/L (3.6-5.0) 08/09/18 05:55 Chloride 105 mmol/L (98-107) 08/09/18 05:55 Carbon Dioxide 28 mmol/L (22-30) 08/09/18 05:55 Anion Gap 13 (10-20) 08/09/18 05:55 BUN 16 mg/dl (9-20) 08/09/18 05:55 Creatinine 0.8 mg/dl (0.8-1.5) 08/09/18 05:55 Est GFR ( Amer) > 60 08/09/18 05:55 Est GFR (Non-Af Amer) > 60 08/09/18 05:55 Random Glucose 164 mg/dL (75-110) H 08/09/18 05:55 Calcium 9.3 mg/dL (8.4-10.2) 08/09/18 05:55 Total Bilirubin 0.4 mg/dl (0.2-1.3) 08/08/18 17:45 AST 34 U/L (17-59) 08/08/18 17:45 ALT 32 U/L (21-72) 08/08/18 17:45 Alkaline Phosphatase 70 U/L (38-126) 08/08/18 17:45 Total Protein 7.3 G/DL (6.3-8.2) 08/08/18 17:45 Albumin 4.1 g/dL (3.5-5.0) 08/08/18 17:45 Globulin 3.2 gm/dL (2.2-3.9) 08/08/18 17:45 Albumin/Globulin Ratio 1.3 (1.0-2.1) 08/08/18 17:45 Influenza Typ A,B (EIA) Negative for flu a/b (NEGATIVE) 08/08/18 17:28 - Hospital Course Hospital Course: SHORTNESS OF BREATH IMPROVED STILL COUGHING Discharge Exam - Head Exam Head Exam: ATRAUMATIC, NORMAL INSPECTION, NORMOCEPHALIC - Eye Exam Eye Exam: EOMI, Normal appearance, PERRL Pupil Exam: NORMAL ACCOMODATION, PERRL - Respiratory Exam Respiratory Exam: Prolonged Expiratory Phase - GI/Abdominal Exam GI & Abdominal Exam: Normal Bowel Sounds - Rectal Exam Rectal Exam: NORMAL INSPECTION - Neurological Exam Neurological exam: Alert, CN II-XII Intact, Normal Gait, Oriented x3, Reflexes Normal - Psychiatric Exam Psychiatric exam: Normal Affect, Normal Mood - Skin Skin Exam: Dry, Intact, Normal Color, Warm Discharge Plan - Follow Up Plan Condition: FAIR Disposition: HOME/ ROUTINE Additional Instructions: D/C HOME FOLLOW UP WITH DR PAGE
[2018-08-13] MEDS: Promethazine/Cod 6.25mg-10mg/5ml Syr UD PO PRN ×2 (10:20)
== END 2018-08-13 10:30 | disposition home or self-care (01) | DRG 88 ==
LOC: H.ER 15:46 → H.ERHOLD 17:52 → H.MEDSURG1 21:15
PROVIDERS: ADMIT Internal Medicine Pulmonary Disease; ATTEND Internal Medicine Pulmonary Disease
PROC: 3E0F7GC Introduction of Other Therapeutic Substance into Respiratory Tract, Via Natural or Artificial Opening (ICD-10-PCS; principal; 2018-08-09)
DX: J44.1 Chronic obstructive pulmonary disease with (acute) exacerbation (principal); J98.11 Atelectasis; G89.4 Chronic pain syndrome; I10 Essential (primary) hypertension; J20.9 Acute bronchitis, unspecified; J44.0 Chronic obstructive pulmonary disease with (acute) lower respiratory infection; M19.90 Unspecified osteoarthritis, unspecified site; Z87.442 Personal history of urinary calculi; F41.9 Anxiety disorder, unspecified; M79.605 Pain in left leg; M54.9 Dorsalgia, unspecified; R06.03 Acute respiratory distress

== ENCOUNTER 2018-10-11 09:55 | Day surgery (SDC) | payer OTHER ==
[2018-10-11] MEDS ORDERED: Lactated Ringer's 1,000 ML IV ONE (10:44)
--- NOTE | 2018-10-11 10:54 | CP.SDSHP ---
Same Day Surgery H & P - History Proposed Procedure: Left knee genicular nerve blocks Pre-Op Diagnosis: Left knee OA - Previous Medical/Surgical History Cardiac: Hypertension Pulmonary: Emphysema/COPD Endocrine/Metabolic: Obesity Pain: 8.Very Severe - Allergies Allergies: Allergies Penicillins Allergy (Verified 10/11/18 10:15) RASH - Physical Exam Vital Signs: Vital Signs 10/11/18 10:45 Temperature 97.6 F Pulse Rate 89 Respiratory 20 Rate Blood Pressure 145/79 O2 Sat by Pulse 96 Oximetry Neuro: WNL Heart: WNL Lungs: WNL - Impression Impression: Left knee osteoarthritis Pt. Evaluated Today:Candidate for Anesthesia & Procedure: Yes Short Stay Discharge - Short Stay Discharge Admitting Diagnosis/Reason for Visit: M54.16/ M51.26/ Disposition: HOME/ ROUTINE
[2018-10-11] MEDS ORDERED: methylPREDNISolone Depo 80 mg/ml Inj ONE (11:18)
[2018-10-11] MEDS ORDERED: Bupivacaine HCl 0.25% PF (30 ml) Inj ONE (11:18)
[2018-10-11] MEDS ORDERED: methylPREDNISolone Depo 80 mg/ml Inj IM ONE (11:31)
[2018-10-11] MEDS ORDERED: Lidocaine 1% Inj (20ml) IJ ONE (11:31)
[2018-10-11] MEDS ORDERED: Bupivacaine HCl 0.5% PF (30 ml) Inj IJ ONE (11:31)
[2018-10-11] MEDS ORDERED: HYDROmorphone 0.5 mg/0.5 ml ISec IVP PRN (11:45)
[2018-10-11] MEDS ORDERED: Lactated Ringer's 1,000 ML IV SCH (11:45)
[2018-10-11 12:54] VITALS: RESP 18; TEMP 97.2
[2018-10-11 13:01] VITALS: O2SAT 99
[2018-10-11 13:02] VITALS: BP 133/66; PULSE 75
--- NOTE | 2018-10-11 14:05 | OP ---
PROCEDURE DATE: 10/11/2018 PREOPERATIVE DIAGNOSIS: Left knee osteoarthritis. POSTOPERATIVE DIAGNOSIS: Left knee osteoarthritis. PROCEDURE: Left knee genicular nerve block x3. SURGEON: Richard Wright MD. ANESTHESIA: Monitored anesthesia care. ANESTHESIOLOGIST: Enrique Carrillo MD COMPLICATIONS: None. SPECIMEN: None. DESCRIPTION OF PROCEDURE: After we had the discussion of the procedure with the patient including its risks, benefits, alternatives, outcome data, possibility of no effect or increased pain, the patient consented to the procedure. He denies any recent infection, bleeding tendencies, or being on anticoagulants. A decision was then made to proceed to the OR. The patient was placed on the fluoroscopy table in a supine position with a bump underneath the left knee. The knee was prepped and draped in the usual sterile fashion and sterile technique was adhered to during the entire procedure. The for the genicular nerves are over the lateral and medial femoral condyle and also the medial tibial condyle. The skin overlying the three above targeted areas was then infiltrated with 1% lidocaine using 25-gauge needle. Subsequently, a 22-gauge 3.5-inch spinal needle was incrementally advanced. Perpendicular to the skin, anterior bony contact was made with three target areas. Then, the needle was walked slightly posteriorly until it was at the mid shaft of the femur and also the tibia respectively. This was confirmed by turning the fluoroscopy towards the lateral position. After satisfactory positioning of all three needles, approximately 4 mL of 0.5% Marcaine and Depo-Medrol mixture was injected. The needles were then removed and the patient's knee was cleaned and dry bandage was applied. The patient was then transferred to the recovery area in good conditions without any signs of SHIP CEILER toxicity or any neurological deficit. He was to follow up in the office in approximately two to four weeks. Richard Wright MD
--- NOTE | 2018-10-12 14:03 | RAD ---
Date of service: 10/11/2018 PROCEDURE: Intraoperative Fluoroscopy. HISTORY: PAIN MANAGEMENT FINDINGS: Fluoroscopic assistance was provided for pain management procedure. Please refer to the operative report from DONAL Lewis. Total fluoroscopic time (continuous mode) utilized during the procedure 12.9 seconds. Total exam DLP: 0.88 (MGy).
== END 2018-10-11 13:05 | disposition home or self-care (01) ==
LOC: H.OPSURG 09:55
PROVIDERS: ATTEND Anesthesiology
DX: M17.12 Unilateral primary osteoarthritis, left knee (principal); M54.16 Radiculopathy, lumbar region; M51.26 Other intervertebral disc displacement, lumbar region; J44.9 Chronic obstructive pulmonary disease, unspecified; I10 Essential (primary) hypertension; E03.9 Hypothyroidism, unspecified; F41.9 Anxiety disorder, unspecified; M10.9 Gout, unspecified; Z88.0 Allergy status to penicillin; E66.9 Obesity, unspecified
CPT/HCPCS: 64450; J1040; J2250; J3010; J7120